=== PATIENT | male | born 1965 | race Caucasian/White ===

== ENCOUNTER 2019-08-07 17:17 | Observation (INO) ==
[2019-08-07] MEDS ORDERED: DUONEB (A & A) INH ONE (17:43)
--- NOTE | 2019-08-07 18:33 | Diag Imaging Result Doc PS360 ---
EXAM: CHEST-1 VIEW HISTORY: pneumonia TECHNIQUE: Single view COMPARISON: None. FINDINGS: The lungs are well expanded. The heart is not enlarged. The vessels are not distended. There are right lower lobe infiltrates. No effusion identified. IMPRESSION: Right lower lobe pneumonia Electronically signed by Chi Higginbotham 08/07/2019 6:31 PM
--- NOTE | 2019-08-07 18:42 | PROVIDER DOCUMENTATION ---
This chart was entered by Marcelina Ness Scribe, acting as scribe for Matthew George MD. HPI-Respiratory General - General Chief Complaint: Shortness of Breath Stated Complaint: DR MELGAR REFERRED Time Seen by Provider: 08/07/19 17:38 Source: patient Allergies/Adverse Reactions: Patient Allergies Allergy/AdvReac Type Severity Reaction Status Date / Time codeine Allergy ITCHING Verified 08/07/19 18:37 sulfamethoxazole Allergy ITCHING Verified 08/07/19 18:37 [From Bactrim] trimethoprim [From Bactrim] Allergy ITCHING Verified 08/07/19 18:37 Home Medications: Home Medication List Medication Instructions Recorded Confirmed Last Taken Type ATORVAstatin [Lipitor] 80 mg PO DAILY 08/07/19 08/07/19 08/06/19 21:00 History Folic Acid 1 mg PO DAILY 08/07/19 08/07/19 08/07/19 07:00 History Hydrochlorothiazide 25 mg PO DAILY 08/07/19 08/07/19 08/07/19 07:00 History Lisinopril 40 mg PO DAILY 08/07/19 08/07/19 08/07/19 07:00 History Meloxicam [Mobic] 7.5 mg PO DAILY 08/07/19 08/07/19 08/07/19 07:00 History Methotrexate 2.5 mg PO DAILY 08/07/19 08/07/19 08/07/19 07:00 History Metoprolol Tartrate 100 mg PO BID 08/07/19 08/07/19 08/07/19 07:00 History - History of Present Illness-Resp Nature of Presenting Problem: 53 yowm presents to the ed with c/o dx today with RLL PNA and has cough with back pain for 1 week. pt went to see his pcp today and was sent to ed due to PNA on xray. pt on exam is nontoxic in appearance Quality of Pain: reports: aching Severity in ED: reports: mild Onset/Duration: reports: 1 week ago Timing: reports: still present, intermittent Cough Quality/Degree: reports: mild, dry cough Episode Frequency: occasional episodes Current Respiratory Medication Therapy: Initiated see nurses note Modifying Factors: worse with: exertion, coughing Associated Symptoms: reports: chest pain/soreness (chest wall on rt lower side), cough, shortness of breath, wheezing, other (back pain) Similar Symptoms Previously?: Yes (PNA) Recently seen or treated by another doctor?: Yes (saw pcp [facility] in ed) Review of Systems - Adult - REVIEW OF SYSTEMS - ADULT Constitutional: denies: chills, fever Eyes: reports: no symptoms reported Ears, Nose, Mouth & Throat: reports: no symptoms reported Cardiovascular: reports: see HPI, chest pain (chest wall pain on rt lower chest) . denies: palpitations, syncope Respiratory: reports: see HPI, cough, dyspnea on exertion, shortness of breath, wheezing Gastrointestinal: denies: abdominal pain, diarrhea, nausea, vomiting Genitourinary: reports: no symptoms reported Musculoskeletal: reports: see HPI, back pain (rt thoracic). denies: neck pain Integumentary: reports: no symptoms reported Neurological: denies: dizziness/vertigo, headache/migraines Psychiatric: reports: no symptoms reported Endocrine: reports: no symptoms reported Hematologic/Lymphatic: reports: no symptoms reported Allergic/Immunologic: reports: no symptoms reported All Other Systems: Reviewed and Negative Past History - Adult - PAST MEDICAL HISTORY-ADULT Review of Records: reports: Old Records Reviewed, Nursing Assessment Review, Medications Reviewed, Social history reviewed & non-contributory. Major Childhood Illnesses: reports: denies history Cardiovascular: reports: denies history Respiratory: reports: pneumonia Gastrointestinal: reports: denies history Genitourinary: reports: denies history Musculoskeletal: reports: denies history Neurological: reports: denies history Psychiatric: reports: denies history Endocrine/Immune: reports: denies history Other Conditions: reports: denies history - PRIOR SURGERIES/PROCEDURES Surgical/Procedure History: reports: reviewed, not pertinent - IMMUNIZATION STATUS Childhood Immunizations: See Nurse Assessment Flu Vaccine: See Nurse Assessment - FAMILY HISTORY Family History: reviewed, not pertinent - SOCIAL HISTORY Smoking: cigarettes, greater than 1 pack/day Provider spent 3-5 mins advising pt. on dangers of tobacco.: Discussed manners to quit use, and f/u contacts for add'l counseling. Substance Use: denies Alcohol Use Frequency: never Living Situation: family Physical Exam-General - PHYSICAL EXAM-ADULT Initial Vital Signs Reviewed: Yes - CONSTITUTIONAL General Appearance: appears well, alert, no apparent distress, obese - EYES Eyes: PERRL/EOMI, pink conjunctivae - HEAD, EARS, NOSE, MOUTH & THROAT HENMT: moist mucous membranes, dental decay - NECK Neck: non-tender, full range of motion, supple, normal inspection - RESPIRATORY Respiratory: chest non-tender, no respiratory distress, no accessory muscle use, wheezing (right sided only) - CARDIOVASCULAR Cardiovascular: normal peripheral pulses, regular rate, rhythm - CHEST (BREASTS) Chest/Breast: deferred - GASTROINTESTINAL (ABDOMEN) Abdominal Exam: normal bowel sounds, non tender, soft - GENITOURINARY Male Genitalia: deferred Rectal Exam: deferred Hemoccult Exam: deferred - LYMPHATIC Lymphatic: no adenopathy - MUSCULOSKELETAL Back Exam: normal inspection, no CVA tenderness, no vertebral tenderness Extremity: normal range of motion, non-tender, normal inspection, no pedal edema , no calf tenderness, normal capillary refill - SKIN Integumentary: normal color, normal turgor, warm/dry - NEUROLOGIC Neurologic: grossly normal - PSYCHIATRIC Psych/Mental Status: normal mood/affect, normal thought content, normal thought process, oriented x 3 Progress - PLAN OF CARE/RESULTS Progress/Plan/Lab Results: Vital Signs - 8 hr 08/07/19 17:31 08/07/19 17:43 08/07/19 17:55 Temperature 98.3 F Pulse Rate 88 79 80 Respiratory Rate 20 25 H 18 Blood Pressure 147/94 139/93 O2 Sat by Pulse Oximetry 95 98 08/07/19 17:59 08/07/19 18:29 Temperature Pulse Rate 82 82 Respiratory Rate 21 25 H Blood Pressure 145/101 148/104 O2 Sat by Pulse Oximetry 99 97 Orders Category Date Time Status CHEST-1 VIEW [RAD] Stat Exams 08/07/19 17:42 Completed BLOOD CULTURE [BLDCUL] Stat Lab 08/07/19 18:20 Received CBC WITH ELECTRONIC DIFF [HEME] Stat Lab 08/07/19 18:14 Results COMPREHENSIVE METABOLIC PANEL [CHEM] Stat Lab 08/07/19 18:14 Received TROPONIN T Stat Lab 08/07/19 18:14 Received Albuterol 2.5MG/Ipratrop 0.5MG [Duoneb (A & A)] Med 08/07/19 17:43 Discontinued 3 ml INH NOW ONE Aerosol Treatments Routine Oth 08/07/19 17:43 Completed Aerosol Treatments Stat Oth 08/07/19 17:43 Completed EKG [EKG] Stat Ther 11/05/19 17:36 Ordered Result Diagrams: 08/07/19 18:14 - REASSESSMENT Reassessment #1 Time Reassessed: 18:05 Status: unchanged - EKG 1 Time of EKG reading by physician:: 17:40 EKG Read and Signed by:: Matthew George EKG Interpretation (*Must complete 3 of following elements*): Normal Rate: 81 Rhythm: nsr [place]: normal QRS: normal [place] Interval: normal ST Wave: normal - XRAY 1 XRAY: Bilateral XRAY Study: Chest Impression: See EMR Report - CONSULTS/PCP/HOSPITALIST Notification #1 *Consult/PCP/Hospitalist*: Dr Pak Time Discussed: 18:41 Consult Disposition: Will see in ED, Admit Departure - Departure Date of Disposition Decision: 08/07/19 Time of Disposition Decision: 18:41 DIAGNOSIS: Tobacco use disorder PNA (pneumonia) Qualifiers: Pneumonia type: due to unspecified organism Laterality: right Lung location: lower lobe of lung Qualified Code(s): J18.1 - Lobar pneumonia, unspecified organism Disposition: ADMITTED INPATIENT 09 Certified Medical Emergency: Emergent Condition: Fair Referrals and Follow-Ups: Thomas Melgar MD [Primary Care Provider] - Discharge Education: Steps to Quit Smoking, [id number] - Critical Care Note This patient required my direct & personal management of CC.: No Attestation - Physician/ ALBERTINA Attestation Patient care was provided by Advanced Practice Provider:: No The physician spent face to face time with patient:: Yes Advanced Practice Provider documentation review:: Supervising physician onsite and consulted in the evaluation and care of this patient. The physician did have a face to face encounter with the patient. This chart was documented by the indicated scribe, (Marcelina Ness Scribe) and accurately reflects the services I performed and decisions made by me, Matthew George MD, as attested by the provider's signature.
[2019-08-07 18:53] LABS: BASO# 0.03 X1000 (0.0-0.2); BASO% 0.2 % (0.0-0.8); EOS# 0.19 X1000 (0.0-0.7); EOS% 1.3 % (0.0-10.0); HEMATOCRIT 42.2 % (42.0-52.0); HEMOGLOBIN 13.7 g/dL (14.0-18.0); IMM GRAN# 0.09 X1000 (0.0-0.04); IMM GRAN% 0.6 % (0.0-0.5); LYMPH# 1.31 X1000 (1.2-3.4); LYMPH% 8.7 % (20.5-51.1); MCH 30.9 PG (27-31); MCHC 32.5 g/dL (33-37); MONO# 0.78 X1000 (0.11-0.59); MONO% 5.2 % (1.7-9.3); MPV 9.9 FL (7.4-10.4); NEUT# 12.69 X1000 (1.4-6.5); PLT 333 X1000 (130-400); RBC 4.44 XMIL (4.7-6.1); RDW 14.5 % (11.5-14.5); WBC 15.09 X1000 (4.8-10.8)
[2019-08-07] MEDS ORDERED: LEVAQUIN 500 MG/D5W 500 MG/100 ML IVPB IV ONE (18:59)
[2019-08-07 19:01] LABS: AGAP 15; ALB/GLOB RATIO 1.1; ALBUMIN 3.4 g/dL (3.5-5.0); ALKALINE PHOSPHATASE 92 U/L (32-122); BUN 15 mg/dL (8-22); CALCIUM 8.8 mg/dL (8.8-10.2); CHLORIDE 93 mmol/L (98-107); COSMO 279; CREATININE 0.6 mg/dL (0.7-1.2); ESTIMATED GFR > 60; GLUCOSE 107 mg/dL (70-104); GOT 21 U/L (10-34); GPT 21 U/L (10-44); POTASSIUM 3.3 mmol/L (3.5-5.1); SODIUM 139 mmol/L (136-145); TCO2 31 mmol/L (25-35); TOTAL BILIRUBIN 0.49 mg/dL (0.20-1.00); TOTAL PROTEIN 6.4 g/dL (6.3-8.3)
--- NOTE | 2019-08-07 20:04 | EKG Report ---
Test Performed on : 08/07/2019 5:40:35 PM Test Reason : TLN Blood Pressure : / mmHG Vent. Rate : 081 BPM Atrial Rate : 081 BPM P-R Int : 152 ms QRS Dur : 084 ms QT Int : 388 ms P-R-T Axes : 042 057 044 degrees QTc Int : 450 ms Normal sinus rhythm. Normal ECG No previous ECGs available Unconfirmed Result
[2019-08-07 22:33] LABS: INR 1.1; PROTIME 14.3 Seconds (11.0-16.0)
[2019-08-07 22:34] LABS: PTT 32.4 Seconds (22.3-41.8)
[2019-08-07] MEDS ORDERED: ZOFRAN IV PRN (23:24)
[2019-08-07] MEDS ORDERED: TYLENOL PO PRN (23:24)
[2019-08-07] MEDS ORDERED: KLOR-CON PO ONE (23:24)
[2019-08-08] MEDS ORDERED: NICODERM PATCH TD PRN (00:37)
[2019-08-08] MEDS ORDERED: NS 1,000 ML IV SCH (00:45)
[2019-08-08] MEDS ORDERED: LEVAQUIN 250 MG/D5W 250 MG/50 ML IVPB IV ONE (00:50)
[2019-08-08] MEDS ORDERED: TESSALON PO PRN (01:45)
[2019-08-08] MEDS: LIPITOR PO SCH ×2 (02:04→22:15)
[2019-08-08] MEDS: DUONEB (A & A) INH SCH ×4 (03:33→21:45)
--- NOTE | 2019-08-08 03:48 | HISTORY AND PHYSICAL ---
PRIMARY CARE PROVIDER: Dr. Melgar. CHIEF COMPLAINT: Cough and shortness of breath. HISTORY OF PRESENT ILLNESS: Mr. Escamilla is a 53-year-old male with a past medical history most notable for hypertension, hyperlipidemia, rheumatoid arthritis, depression, neuropathy, and headaches. He reports that for approximately a week now he has been having a productive cough, shortness of breath, weakness, and has been having pain in his right side and right lower chest. He states this pain is worse when he coughs, though he denies any fever, body aches or chills. He also denies any headache. He does report some dizziness, though he states this has been ongoing for quite some time prior to his current symptoms, and usually occurs when he goes from a bending over to a standing up position, though he states that it has not worsened. He is reporting a productive cough and shortness of breath, as well as chest pain that is in his right lower chest and right side that worsens when he coughs. He is tender to palpation in this area. He denies any abdominal pain, nausea, vomiting or diarrhea. He denies any hematochezia or melena. He denies any dysuria or urinary frequency. The patient does has had some chronic pain secondary to rheumatoid arthritis. Other than this he has not had any new pain or swelling in extremities. The patient denies any recent travel or being around anyone sick with similar symptoms. He does smoke a pack and half a cigarettes per day and has done so since he was an adolescent. He did present to Dr. Melgar's office today for evaluation of his symptoms, they did perform a chest x-ray and had him sent to the ER for further evaluation due to likely a diagnosis of pneumonia. Upon evaluation in the ER the patient's initial vital signs were a temperature of 98.3 degrees, heart rate 88, respirations 20, blood pressure is 147/94, with oxygen saturation of 95% on room air. White blood cell count was elevated at 15,090. He was mildly hypokalemic, but other than that all other laboratory results were pretty unremarkable. Chest x- ray did show that the patient had a right lower lobe pneumonia. Blood cultures were obtained. He was given antibiotic of Levaquin. We will be placed for admission. REVIEW OF SYSTEMS: A 14 point review of systems was conducted with the patient and all were negative except for pertinent positives as mentioned above in the HPI. PAST MEDICAL HISTORY: 1. Hypertension. 2. Hyperlipidemia. 3. Rheumatoid arthritis. 4. Headaches. 5. Depression. 6. Neuropathy. PAST SURGICAL HISTORY: 1. Right inguinal hernia repair. 2. Left ankle surgery. 3. Parotid tumor removal. SOCIAL HISTORY: The patient is a smoker, he has smoked since he was an adolescent. He does smoke 1-1/2 packs of cigarettes per day. He does report some very occasional alcohol use. He also reports the use of marijuana. FAMILY HISTORY: Positive for his mother having diabetes mellitus. His father had a history of hypertension. ALLERGIES: The patient has allergies to codeine and Bactrim. HOME MEDICATIONS: 1. Lipitor 80 mg p.o. daily. 2. Folic acid 1 mg p.o. daily. 3. Hydrochlorothiazide 25 mg p.o. daily. 4. Lisinopril 40 mg p.o. daily. 5. Mobic 7.5 mg p.o. daily. 6. Methotrexate 2.5 mg p.o. daily. 7. Metoprolol tartrate 100 mg p.o. b.i.d. DIAGNOSTIC STUDIES: White blood cell count is 15,090, hemoglobin 13.7, hematocrit 42.4, platelet count is 333,000. PT 14.3, INR 1.1, PTT is 32.4. Sodium 139, potassium 3.3, chloride 93, serum bicarbonate is 31, BUN 15, creatinine 0.6, GFR greater than 60, glucose 107, calcium 8.8, magnesium 1.9. Total bilirubin is 0.49, AST 21, ALT 21, alkaline phosphatase is 92. Troponin is less than 0.01. EKG showed normal sinus rhythm at a rate of 81 with a QTc of 450. Chest x-ray 1 view did show right lower lobe pneumonia. PHYSICAL EXAMINATION: VITAL SIGNS: Temperature 98.3 degrees, heart rate 71, respirations 20, blood pressure is 120/76, oxygen saturation is 97% on room air. GENERAL: Mr. Escamilla is a pleasant, 53-year-old male. He was resting in the ER stretcher. He was in no acute distress. He was awake, alert, and able to answer questions appropriately. HEENT: Head is atraumatic, normocephalic. Pupils are equal, round and reactive to light, were 3 mm bilaterally and brisk. Oral mucosa is moist. Oropharynx is clear. NECK: Supple. Trachea midline. CARDIOVASCULAR: The patient has S1, S2 present. No murmurs, gallops or rubs appreciated with a regular rate and rhythm. PULMONARY: The patient has symmetrical chest expansion bilaterally. Lung sounds in the right lower lobe were slightly diminished and there were some crackles noted as well. Other than this all other lung sounds were clear to auscultation. The patient does have some tenderness upon palpation in the right lower chest wall area and right flank. ABDOMEN: Soft, nontender, nondistended. Bowel sounds are present in all 4 quadrants, were normoactive. EXTREMITIES: No cyanosis or edema noted. Pulse, motor and sensory is intact in all extremities. Radial and pedal pulses are 2+ bilaterally. INTEGUMENTARY: The patient's skin is pink, warm and dry. NEUROLOGICAL: The patient is alert and oriented to person, place, time and situation. He is able to move all extremities. There were no focal neurological deficits noted. ASSESSMENT AND PLAN: 1. Community-acquired right lower lobe pneumonia. This was diagnosed today. The patient did receive an initial dose of Levaquin 750 mg in the ER. We will continue this q. 24 hours IV. We will continue with incentive spirometry, scheduled DuoNeb treatments, encouragement to frequently turn, cough and deep breathe. We have also ordered the patient some Mucinex as well. We will continue to follow. 2. Leukocytosis. This is likely secondary to his pneumonia. We will continue treatment as mentioned above in #1. 3. Mild hypokalemia. We have replaced the patient's potassium with 40 mEq of potassium chloride. His magnesium level was within normal limits. We will recheck a BMP in the morning. 4. Hypertension. We will continue his prescribed antihypertensive medications of hydrochlorothiazide, lisinopril and metoprolol. 5. Hyperlipidemia. We will continue with atorvastatin. 6. Rheumatoid arthritis. We will continue with his Mobic and methotrexate. 7. Deep vein thrombosis prophylaxis was provided with sequential compression devices. 8. The patient has been placed on the medical floor with telemetry. He will have vital signs every 8 hours. We will do strict intake and output. He will be on a heart healthy diet. We will repeat a CBC and BMP in the morning. We have also placed order for a sputum culture. 9. Further orders and recommendations pending hospital course, diagnostic studies, and physician evaluation. Dictated by GINA Jade for Reynold Alegria MD cc: Reynold Alegria MD
[2019-08-08 07:58] LABS: BASO# 0.02 X1000 (0.0-0.2); BASO% 0.1 % (0.0-0.8); EOS# 0.35 X1000 (0.0-0.7); EOS% 2.5 % (0.0-10.0); HEMATOCRIT 38.5 % (42.0-52.0); HEMOGLOBIN 12.9 g/dL (14.0-18.0); IMM GRAN# 0.08 X1000 (0.0-0.04); IMM GRAN% 0.6 % (0.0-0.5); LYMPH# 1.33 X1000 (1.2-3.4); LYMPH% 9.5 % (20.5-51.1); MCH 31.8 PG (27-31); MCHC 33.5 g/dL (33-37); MCV 94.8 FL (81-99); MONO# 0.82 X1000 (0.11-0.59); MONO% 5.9 % (1.7-9.3); MPV 9.7 FL (7.4-10.4); NEUT# 11.41 X1000 (1.4-6.5); NEUT% 81.4 % (42.2-75.2); PLT 331 X1000 (130-400); RBC 4.06 XMIL (4.7-6.1); RDW 14.2 % (11.5-14.5); WBC 14.01 X1000 (4.8-10.8)
[2019-08-08 08:14] LABS: AGAP 9; BUN 15 mg/dL (8-22); CALCIUM 9.5 mg/dL (8.8-10.2); CHLORIDE 98 mmol/L (98-107); COSMO 278; CREATININE 0.7 mg/dL (0.7-1.2); ESTIMATED GFR > 60; GLUCOSE 100 mg/dL (70-104); POTASSIUM 3.5 mmol/L (3.5-5.1); SODIUM 139 mmol/L (136-145); TCO2 32 mmol/L (25-35)
[2019-08-08] MEDS ORDERED: HYDROCHLOROTHIAZIDE PO SCH (09:00)
[2019-08-08] MEDS ORDERED: MOBIC PO SCH (09:00)
[2019-08-08] MEDS ORDERED: FOLIC ACID PO SCH (09:00)
[2019-08-08] MEDS ORDERED: PRINIVIL PO SCH (09:00)
[2019-08-08] MEDS: LOPRESSOR PO SCH ×2 (10:22→22:15)
[2019-08-08] MEDS: MUCINEX PO SCH ×2 (10:22→22:15)
--- NOTE | 2019-08-08 13:24 | Diag Imaging Result Doc PS360 ---
EXAM: CT THORAX W/CONTRAST 08/08/2019 HISTORY: right lower lobe consolidation TECHNIQUE: This exam was performed using automated exposure control, adjustment of mA or kV according to patient size, and/or use of iterative reconstruction technique. COMMENT: There are no previous studies. There is a right pleural effusion. There are no filling defects in the pulmonary arteries. The aorta is normal in caliber and there is no evidence of dissection. There are emphysematous changes particularly in the right apex. There is compressive atelectasis with air bronchograms in the right lower lobe and platelike atelectasis in the right middle lobe. Minimal platelike atelectasis or fibrosis is present in the posterior costophrenic sulcus of the left lower lobe. There is a fair amount retained gastric contents. There are no apparent gallstones. The liver is hypodense suggesting fatty change. IMPRESSION: Right pleural effusion. Atelectasis particularly in the right lower lobe. The possibility of pneumonia cannot be excluded. Electronically signed by Jerry Lin 08/08/2019 1:22 PM
--- NOTE | 2019-08-08 17:18 | PROGRESS NOTE ---
DATE: 08/08/2019 SUBJECTIVE: This morning Mr. Escamilla refers to be doing slightly better. Shortness of breath is under control. He still states he is coughing, but he is not bringing up anything. Mr. Escamilla was admitted directly from Dr. Melgar's office after he presented with a 5-day history of some shortness of breath and cough. X-ray which was done in Dr. Melgar's office revealed a right- sided pneumonia. He was transferred, and he was referred to come to the hospital. OBJECTIVE: Vital Signs: Current vitals, blood pressure is 130/98, pulse 81, respirations 16, and temperature is 97.6 degrees. Patient is saturating 96% on room air. General: Mr. James Escamilla is not in any distress. HEENT: Mucosa is pink and moist. Anicteric. Acyanotic. Neck: Supple. There was no JVD. Chest: Air entry was bilaterally reduced, more so to the right posterior lung field. Some crackles were heard. I think there was mild bronchial breath sounds as well. CVS: Normal heart sounds. There were no murmurs, no rubs, and no gallops. GI: Abdomen was soft and nontender. Bowel sounds present. Extremities: No pedal edema. On the fingers, especially the big fingers, multiple nodulations in the palmar surfaces of the fingers which according to him he has been told is due to rheumatoid arthritis. POWDER ROOM ATTENDANT: Patient was awake, alert, and oriented. LABORATORY DATA: WBC is down to 14.01, hemoglobin is 12.9, and platelet count of 331,000. Chemistry is also reviewed which is completely within normal range. DIAGNOSTIC STUDIES: 1. A chest x-ray which was done on admission showed a right lower lobe pneumonia. 2. A CT scan of the chest with contrast shows a right pleural effusion, atelectasis, particularly in the right lower lobe, possibility of pneumonia cannot be excluded. There is also emphysematous changes particularly in the right apex. ASSESSMENT: 1. Dyspnea on presentation likely due to underlying right lower lobe pneumonia associated with a mild parapneumonic effusion. The patient has been started on IV antibiotics. We will also check his strep pneumo and Legionella titers. 2. Emphysematous changes in the lungs per CAT scan. I think Mr. Escamilla has some undiagnosed COPD. He has a 20 pack year history, which he has been counseled on tobacco cessation. He has also been advised to follow up with Pulmonary Medicine. 3. Tobacco use and abuse. 4. Dyslipidemia. 5. Hypertension. 6. History of rheumatoid arthritis. The patient is on methotrexate and follows up with Dr. Molina. PLAN: So for now, I think we will continue with the current antimicrobial therapy, nebulizations and antimicrobial therapy. Re-evaluate him tomorrow morning. Repeat a chest x-ray. If he is improving, I think we can discharge him to follow up with Pulmonary Medicine on outpatient. I think with his background history of 20 pack year history, he will need to repeat his CT scan at the end of the treatment to make sure that there is no underlying mass that is causing this possible atelectasis. cc: Terry Pak MD
[2019-08-09] MEDS ORDERED: LEVAQUIN 750 MG/D5W 750 MG/150 ML IVPB IV SCH (01:00)
[2019-08-09] MEDS: DUONEB (A & A) INH SCH (03:12)
[2019-08-09 07:27] LABS: HEMATOCRIT 37.5 % (42.0-52.0); HEMOGLOBIN 12.4 g/dL (14.0-18.0); MCHC 33.1 g/dL (33-37); MCV 96.9 FL (81-99); MPV 9.2 FL (7.4-10.4); RBC 3.87 XMIL (4.7-6.1); RDW 14.5 % (11.5-14.5); WBC 10.52 X1000 (4.8-10.8)
[2019-08-09 07:28] VITALS: BP 119/88
[2019-08-09 07:59] LABS: AGAP 13; ALBUMIN 3.1 g/dL (3.5-5.0); ALKALINE PHOSPHATASE 90 U/L (32-122); BUN 16 mg/dL (8-22); CALCIUM 8.9 mg/dL (8.8-10.2); CHLORIDE 99 mmol/L (98-107); COSMO 279; CREATININE 0.9 mg/dL (0.7-1.2); ESTIMATED GFR > 60; GLUCOSE 95 mg/dL (70-104); GOT 16 U/L (10-34); GPT 22 U/L (10-44); SODIUM 139 mmol/L (136-145); TCO2 27 mmol/L (25-35); TOTAL BILIRUBIN 0.77 mg/dL (0.20-1.00); TOTAL PROTEIN 6.2 g/dL (6.3-8.3)
--- NOTE | 2019-08-09 18:03 | ECHO REPORT ---
ORDER DATE: 08/08/2019 INDICATION: Shortness of breath. Pleural effusion. FINDINGS: 1. Right atrium appears normal in size. 2. Trace tricuspid regurgitation. 3. Normal RV size and systolic function. 4. No significant pulmonic insufficiency. 5. Normal left atrial size with a dimension of 3.2 cm. 6. No mitral valve prolapse. No significant mitral regurgitation. 7. Normal LV size, end-diastolic dimension of 3.3 cm. Normal wall thicknesses with a posterior and interventricular septal wall thickness of 1.0 cm each. Normal LV systolic function. Estimated EF is 60% to 65% with normal wall motion. 8. The aortic valve opens well. There is no evidence of stenosis or insufficiency. 9. The aorta appears normal in visualized segments. 10. No pericardial effusion seen. 11. IVC appears normal in size and collapses with inhalation. cc: MD Terry Mora MD
--- NOTE | 2019-08-10 13:11 | DISCHARGE SUMMARY ---
ADMISSION DATE: 08/07/2019 DISCHARGE DATE: 08/09/2019 DISPOSITION: Home. FOLLOW-UP: 1. Dr. Melgar. 2. Dr. Jimenez. CONSULTATION DURING ADMISSION: None. INVASIVE PROCEDURES DONE DURING THIS ADMISSION: None. IMAGING STUDIES OF SIGNIFICANCE: 1. Chest x-ray which was done on 08/07/2019 shows right lower lobe pneumonia. 2. A CT scan of the chest with contrast showed a right pleural effusion, atelectasis, particularly in the right lower lobe, possibility of pneumonia cannot be excluded. There were also emphysematous changes particularly in the right apex. ADMISSION DIAGNOSIS: 1. Community-acquired right lower lobe pneumonia. 2. Leukocytosis. 3. Hypokalemia. 4. Hypertension. 5. History of rheumatoid arthritis. DIAGNOSIS AT THE TIME OF DISCHARGE: 1. Dyspnea on presentation secondary to right lower lobe community-acquired pneumonia associated with mild parapneumonic effusion. 2. COPD with emphysematous changes on CAT scan. 3. Tobacco use and abuse prior to hospitalization. 4. Dyslipidemia. 5. Hypertension. 6. History of rheumatoid arthritis. The patient is on methotrexate and follows up with Dr. Molina. DISCHARGE MEDICATIONS: 1. Atorvastatin 80 mg p.o. daily. 2. Hydrochlorothiazide 25 mg p.o. daily. 3. Lisinopril 40 mg p.o. daily. 4. Methotrexate 2.5 mg p.o. daily. 5. Metoprolol 100 mg p.o. b.i.d. 6. Folic acid 1 mg p.o. daily. 7. Meloxicam 7.5 p.o. daily. 8. Levofloxacin 500 p.o. daily. 9. Prednisone 20 mg p.o. daily. 10. Spiriva inhaler. 11. Albuterol inhaler. 12. Nicotine patch. PRESENTING COMPLAINT: Cough, shortness of breath. HISTORY OF PRESENTING COMPLAINT: James Braswell is a 53-year-old gentleman who presented to the emergency department because of shortness of breath. He had gone to see his primary care doctor who evaluated him including a chest x-ray in his office, diagnosed with pneumonia, was recommended to come to the emergency department for admission. Upon presentation, he was evaluated and we were consulted for pneumonia management. HOSPITAL COURSE: Mr. Escamilla was admitted to the medical floor, was started on IV antibiotics and nebulization. Mr. Escamilla has a history of more than 20 pack-year history. He did have some wheezing, so we did a CAT scan of the chest to make sure he does not have any underlying malignancy. The CT scan was reviewed. The report seems to suggest some atelectasis and effusion. Pneumonia could not be entirely excluded. Mr. Escamilla responded very well to the management. This morning, he refers to feel a whole lot better. He does not have any more wheezing and he is saturating 99%, almost 100% on room air. We think he is now fairly stable to be discharged. He is supposed to repeat the chest x-ray in 2 weeks after the antimicrobial treatment. He has been given a referral to follow up with Dr. Jimenez about the suspected COPD, so this can be officially diagnosed with PFTs. He will also follow up with his primary care physician. Mr. Escamilla has rheumatoid arthritis and he follows up with Dr. Molina. We will recommend he continues. All his discharge instructions have been discussed with him and he voiced understanding. At the time of discharge, his blood pressure is 119/88, his pulse is 82, respiration is 19, temperature is 97.9 degrees. His physical exam is unremarkable. Time spent for discharge is 38 minutes. cc: Terry Pak MD
[2019-08-11] MEDS ORDERED: METHOTREXATE PO SCH (21:00)
== END 2019-08-09 11:18 | disposition home or self-care (01) ==
LOC: ED 17:17 → INTOOBSV 23:39 → SUATTDRO 23:39 → 3N 23:39
PROVIDERS: ATTEND Internal Medicine